=== PATIENT | female | born 1965 | race Caucasian/White ===

== ENCOUNTER → 2017-07-27 | Outpatient (CLI) | payer MEDICARE, OTHER ==
[2016-07-12 10:40] VITALS: BP 105/81
[~2017-07-27] MED LIST: ASPI-482 PO; BLAC200C PO; CARI350T PO; DULO60CA6 PO; ESTR0.3T PO; GABA600T2 PO; IBUP-1060 PO; NITR0.4T22 SL; OXYC-328 PO; PROAIR HFA8.5 GM INH; PROM118S2 PO; REGADENOSON 0.4 MG/5 ML DISP.SYRIN. IV ONE; SIMV20TA3 PO; VALIUM10 MG PO; inhaler
--- NOTE | 2017-07-27 15:40 | RAD ---
APPROVED REPORT Test Type: Pharmacological Stress Nurse/Tech: Clare Jackson R.N. Test Indications: CP Cardiac History: smoker Medications: See Electronic Medical Record Medical History: See Electronic Medical Record Resting ECG: SB Resting Heart Rate: 57 bpm Resting Blood Pressure: 139/71mmHg Pretest Chest Pain: No chest pain Nurse/Tech Notes S1S2, lungs CTA Consent: The procedure was explained to the patient in lay terms. Informed consent was witnessed. Dejon eout was entered into [facility]. History and Stress Test performed by RT Aleida (R) (N) Pharm. Details Pharmacologic stress testing was performed using 0.4mg per 5ml of regadenoson given intravenously ove r 7-10 seconds. Stress Symptoms Dyspnea, nausea and h/a POST EXERCISE Reason for Termination: Infusion complete Max HR: 124 bpm Max Blood Pressure: 159/71mmHg Blood Pressure response to exercise: Normal blood pressure response during stress. Heart Rate response to exercise: WNL Chest Pain: No. Arrhythmia: No. ST Change: No. INTERPRETATION Stress EKG Conclusion: Baseline EKG showed sinus rhythm. No ischemic changes at peak stress. No arr hythmias. Imaging Protocol IMAGE PROTOCOL: Rest Tc-99m/stress Tc-99m 1 day Rest: Stress: Viability: Radiopharm.Tc99m EcthlpavcNi90o Sestamibi Oaao33pQw 32mCi Img Date 07/27/2017 07/27/2017 Inj-Img [id number]. 60min. Rest Admin Site:IV - Right HandAdministrator:FELIPE Phan, ARRT (R)(N) Stress Admin Site: IV - Right HandAdministrator: RT Aleida (R)(N) STRESS DATA End Diast. Vol.63.0mlAv. Heart Rate67.0bpm End Syst. Vol.12.0mlCO Index BSA3.4L/min Myocardial Yqlg481.0gEject. Iwikibuw28.0% Stress Rates Pk. Fill Rate3.47EDV/secLVtime Pk. Fill 244.32msec Pk. Empty Rate4.36ESV/secLVtime Pk. Foara800.04msec 11/07 Pk. Fill1.52EDV/sec Stress Scores Regional WT1.00Summed WT3.00 Regional WM0.00Summed WM3.00 Study quality was good. Left Ventricular size was Normal at Rest and Stress. Lung uptake was Normal. Left Ventricular ejection fraction is 81%. The rest and stress images show normal perfusion, normal contraction and thickening. LV Perf. Quant 17 Seg. SSS0.00 17 Seg. SRS0.00 17 Seg. SDS0.00 Stress Defect Extent (% LAD)0.00Rest Defect Extent (% LAD)0.00Rev. Defect Extent (% LAD)0.00 Stress Defect Extent (% LCX) 0.00Rest Defect Extent (% LCX)0.00Rev. Defect Extent (% LCX)0.00 Stress Defect Extent (% RCA)0.00Rest Defect Extent (% RCA)0.00Rev. Defect Extent (% RCA)0.00 Stress Defect Extent (% SONI)0.00Rest Defect Extent (% SONI)0.00Rev. Defect Extent (% SONI)0.00 Conclusion 1. Regadenoson cardioisotope stress test did not show any evidence of ischemia or infarct. 2. Normal left ventricular systolic function with ejection fraction calculated at 81%. 3. Low risk for cardiac events.
--- NOTE | 2017-07-27 15:55 | CARD ---
APPROVED REPORT EXAM: Two-dimensional and M-mode echocardiogram with Doppler and color Doppler. Other Information Quality : GoodHR: 65bpm Rhythm : NSR INDICATION Chest Pain Murmur RISK FACTORS Smoking 2D DIMENSIONS RVDd2.6 (2.9-3.5cm)Left Atrium(2D)2.6 (1.6-4.0cm) IVSd0.9 (0.7-1.1cm)Aortic Root(2D)2.3 (2.0-3.7cm) LVDd4.2 (3.9-5.9cm)LVOT Diameter2.1 (1.8-2.4cm) PWd0.8 (0.7-1.1cm)LVDs2.9 (2.5-4.0cm) FS (%) 31.8 %SV46.9 ml LVEF(%)60.3 (>50%) Mitral Valve MV E Omzlgeqv880.4cm/sMV DECEL PMXY409vm MV A Vqdthebp87.8cm/sE/A Ratio1.2 MV A Mzyfbatx46yg Pulmonary Valve PV Peak Zvmkmhyb338.1cm/s Pulmonary Vein S1 Irynhpvy31.6cm/sD2 Rnuwbtiw06.6cm/s PVa [id number] LEFT VENTRICLE The left ventricle is normal size. There is normal left ventricular wall thickness. The left ventricu lar systolic function is normal. The Ejection Fraction is 60-65%. There is normal LV segmental wall m otion. The left ventricular diastolic function and filling is normal for age. RIGHT VENTRICLE The right ventricle is normal size. There is normal right ventricular wall thickness. The right ventr icular systolic function is normal. ATRIA The left atrium size is normal. The right atrium size is normal. The interatrial septum is intact wit h no evidence for an atrial septal defect or patent foramen ovale as noted on 2-D or Doppler imaging. AORTIC VALVE The aortic valve is mildly sclerotic. The aortic valve is trileaflet. Doppler and Color Flow revealed no significant aortic regurgitation. There is no significant aortic valvular stenosis. MITRAL VALVE The mitral valve leaflets are thickened. There is no evidence of mitral valve prolapse. There is no m itral valve stenosis. Doppler and Color Flow revealed trace mitral regurgitation. TRICUSPID VALVE Doppler and Color Flow revealed trace tricuspid valve regurgitation. PULMONIC VALVE The pulmonary valve is not well visualized but appears to open adequately. Doppler and Color Flow rev ealed no pulmonic valvular regurgitation. There is no pulmonic valvular stenosis by spectral Doppler. GREAT VESSELS The aortic root is normal in size. The ascending aorta is normal in size. The pulmonary artery is nor mal. The IVC is normal in size and collapses >50% with inspiration. PERICARDIAL EFFUSION There is no evidence of significant pericardial effusion. Critical Notification Critical Value: No <Conclusion> The left ventricular systolic function is normal. The Ejection Fraction is 60-65%. There is normal LV segmental wall motion. Trace mitral regurgitation. Trace tricuspid valve regurgitation. There is no evidence of significant pericardial effusion.
== END | disposition home or self-care (01) ==
LOC: NM 08:08
PROVIDERS: ATTEND Internal Medicine Cardiovascular Disease
DX: R07.9 Chest pain, unspecified (principal); R01.1 Cardiac murmur, unspecified
CPT/HCPCS: 78452; 93017; 93306; 96374; 96375; 96376; A9500; J2785

== ENCOUNTER → 2017-10-05 | Outpatient (CLI) | payer MEDICARE, OTHER ==
[2016-07-12 10:40] VITALS: BP 105/81
[~2017-10-05] MED LIST changes: -REGADENOSON 0.4 MG/5 ML DISP.SYRIN. IV ONE
--- NOTE | 2017-10-05 12:20 | RAD ---
EXAM: Cervical spine MRI without contrast. HISTORY: Neck pain and upper extremity radiculopathy. TECHNIQUE: Multiplanar, multisequence magnetic resonance imaging of the cervical spine was performed without contrast. COMPARISON: 02/04/2016 FINDINGS: There is no significant listhesis. The vertebral bodies are normal in height. There is degenerative endplate remodeling predominantly at C5-C6, and to lesser extent, C4-C5 and C6-C7. No suspicious osseous lesion is seen. No suspicious spinal cord lesion is seen. There is slight deformation of the spinal cord at multiple levels due to central canal stenosis, described in detail below. There are areas of T2 hyperintensity throughout the cerebral white matter and annabella, a nonspecific finding likely due to chronic small vessel disease. At C2-C3, there is no stenosis. At C3-C4, there is a minimal disc bulge and endplate remodeling. There is uncovertebral arthropathy. There is flattening of the ventral aspect of the spinal cord with minimal central canal stenosis measuring 9.4 mm in anterior posterior dimension. At C4-C5, there is a disc bulge and endplate remodeling. There is uncovertebral arthropathy. There is minimal right greater than left foraminal stenosis. There is slight flattening of the ventral aspect of spinal cord with minimal central canal stenosis measuring 9.4 mm in anterior posterior dimension. At C5-C6, there is a right posterior lateral disc osteophyte complex superimposed on a disc bulge and endplate remodeling. There is a right uncovertebral arthropathy. There is moderate right foraminal stenosis. There is deformation of the right ventral aspect of the spinal cord and deviation of the right ventral nerve ramus with mild central canal stenosis measuring 9.1 mm in anterior posterior dimension. At C6-C7, there is a broad-based posterior central to left paracentral disc protrusion superimposed on endplate remodeling. There is abutment of the left ventral aspect of the spinal cord without significant central canal stenosis. IMPRESSION: Multilevel degenerative changes of the cervical spine, described in detail above. There has been interval increase in a disc protrusion at C6-C7. The degenerative changes and the remainder of the cervical levels are similar compared to the prior study. This results in moderate right foraminal and mild central canal stenosis at C5-C6. Electronically signed by: Wendi Toledo MD (10/05/2017 12:16 PM) [id number]
== END | disposition home or self-care (01) ==
LOC: MRI 10:42
PROVIDERS: ATTEND Physician Assistant Surgical
DX: M50.223 Other cervical disc displacement at C6-C7 level (principal); M48.02 Spinal stenosis, cervical region
CPT/HCPCS: 72141